=== PATIENT | female | born 1980 | race Caucasian/White ===

== ENCOUNTER 2018-01-22 08:19 | Emergency (ER) | payer OTHER ==
[~2018-01-22] VITALS: Ht 172.7 cm; Wt 74.8 kg
[2018-01-22] MEDS ORDERED: FLONASE 0.05%50 MCG NASAL (08:31)
[2018-01-22 09:16] LABS: INFLUENZA A ANTIGEN None Detected (None Detect); INFLUENZA B ANTIGEN None Detected (None Detect)
[2018-01-22] MEDS ORDERED: TESSALON PERLE100 MG PO (09:24)
[2018-01-22 09:25] VITALS: BP 112/71
== END 2018-01-22 09:34 | disposition home or self-care (01) ==
LOC: M.ERS 08:19
PROVIDERS: Emergency Medicine Emergency Medical Services
DX: B34.9 Viral infection, unspecified (principal); F17.210 Nicotine dependence, cigarettes, uncomplicated